=== PATIENT | male | born 1990 ===

== ENCOUNTER → 2021-01-25 | Outpatient (CLI) | payer BC ==
[~2021-01-25] MED LIST: ADDERALL 20 MG20 M1 PO; ALPRAZOLAM1 MG PO; NORCO 10-325 T1 EACH PO
== END ==
LOC: LAB 10:32
PROVIDERS: Student in an Organized Health Care Education/Training Program; ATTEND Surgery
DX: Z01.812 Encounter for preprocedural laboratory examination (principal); Z20.822 Contact with and (suspected) exposure to COVID-19